=== PATIENT | male | born 1970 | race Caucasian/White ===

== ENCOUNTER 2021-03-05 08:42 | Day surgery (SDC) | payer BC ==
[~2021-03-05] VITALS: Ht 182.9 cm; Wt 125.8 kg
[~2021-03-05 08:42] MED LIST: MULVITA; Prinivil10 MG; ROSU10TA
== END 2021-03-05 11:11 | disposition home or self-care (01) ==
LOC: ORSCSDS 08:42
PROVIDERS: Internal Medicine Gastroenterology
PROC: 0DBH8ZX Excision of Cecum, Via Natural or Artificial Opening Endoscopic, Diagnostic (ICD-10-PCS; principal; 2021-03-05 10:00)
PROC: 0DBM8ZX Excision of Descending Colon, Via Natural or Artificial Opening Endoscopic, Diagnostic (ICD-10-PCS; principal; 2021-03-05 10:00)
DX: Z12.11 Encounter for screening for malignant neoplasm of colon (principal); D12.0 Benign neoplasm of cecum; K63.5 Polyp of colon; E78.5 Hyperlipidemia, unspecified; I10 Essential (primary) hypertension; Z79.899 Other long term (current) drug therapy; Z79.82 Long term (current) use of aspirin
CPT/HCPCS: 88305; J2704; J7120